=== PATIENT | male | born 1955 | race Caucasian/White ===

== ENCOUNTER 2016-11-09 07:02 | Day surgery (SDC) | payer BC ==
--- NOTE | 2016-10-15 12:28 | HP ---
Chief Complaint - Chief Complaint Date of Service: 10/15/16 Chief Complaint: need my colonoscopy History of Present Illness: 61 year old male with no family history of colon cancer who presents for a screening colonoscopy. No blood in stools, no changes in bowel habits, no abdominal pain. No weight loss or night sweats. Uses fiber supplements to make bowels regular. - Patient's Past Medical History Patient History - Medical: No pertinent hx, Other - allergies Patient History - Cardiac/Respiratory: No pertinent hx Patient History - Surgical Procedures: Colonoscopy, Orthopedic - knee scopes for meniscus tears Patient History - Other: None - Family History Family History:: no untoward family reactions to anesthesia, no familial bleeding tendencies, no family history of clotting disorders - Family History Mother Family History - Medical: No pertinent hx Father Family History - Medical: No pertinent hx - Social History Living Situations: spouse Abuse History: No History of abuse Psych History: No pertinent hx Does anyone smoke in the home?: No Smoking Status: Never smoker Alcohol Use: occasionally Drug Use: none - Immunizations Immunizations Up to Date: Yes Hx Pneumococcal Vaccination: Yes History of Influenza Vaccine: Yes Review Of Systems (GEN) - Review of Systems Generalized/Overall Review: Absent: Weakness, Malaise, Fatigue, Weight loss, Weight gain EENTM: Absent: Blurred Vision, Tearing, Double Vision Respiratory: Absent: Shortness of Breath, Stridor, Wheezing Cardiac: Absent: Chest Pain, Edema, Palpitations Abdominal: Absent: Nausea, Abdominal Pain, Constipation, Diarrhea, Bright blood from rectum Genitourinary: Present: Nocturia. Absent: Burning, Itching, Urgency, Frequency Musculoskeletal: Present: Joint Pain, Joint Swelling, Muscle Pain. Absent: Back Pain Neurological: Absent: Headache, Anxiety, Depressed, Emotional Problems, Numbness Skin: Absent: Dryness, Lesions, Lumps Endocrine: Absent: Intolerance to Cold Allergies/Adverse Reactions: Allergies Allergy/AdvReac Type Severity Reaction Status Date / Time sulfamethoxazole AdvReac Mild RASH Verified 07/13/14 14:36 [From Bactrim] trimethoprim [From Bactrim] AdvReac Mild RASH Verified 07/13/14 14:36 Home Medications: HOME MEDICATIONS Aspirin [Aspirin Enteric Coated] 81 mg PO DAILY 07/13/14 [Last Taken Unknown] Cyanocobalamin (Vitamin B-12) [Vitamin B-12] 2,000 mcg PO DAILY 07/13/14 [Last Taken Unknown] Fexofenadine HCl [Dee Allergy] 180 mg PO DAILY 07/13/14 [Last Taken Unknown] Fluticasone Propionate [Flonase] 2 spray NS DAILY 07/13/14 [Last Taken Unknown] Testosterone [Androgel] 91 mg TD DAILY 07/13/14 [Last Taken Unknown] oxyCODONE HCL/ACETAMINOPHEN [Percocet 5 MG/325 MG] 1 tab PO Q4H PRN #60 tablet 07/16/14 [Last Taken Unknown] Exam - Exam Vital Signs: Vital Signs - Last Taken Temp 36.7 C 10/15/16 Pulse 70 Resp BP 128/70 10/15/16 Pulse Ox Ht 5'10 Wt 160#s Constitutional: Present: Alert, Oriented x3, Cooperative, Well developed, Well nourished, No distress ENT Exam: Present: normal ENT inspection, hearing grossly normal Eye Exam: bilateral eye: normal inspection Neck: Present: non-tender, full range of motion, supple Respiratory: Present: chest non-tender, lungs clear, normal breath sounds, no respiratory distress, no accessory muscle use Cardiovascular/Chest: Present: normal peripheral pulses, regular rate, rhythm, no edema, no gallop, no JVD, no murmur Abdomen: Present: Normal bowel sounds, soft, nontender, nondistended, no rebound tenderness, no hepatospenomegaly /Rectal: Present: Exam deferred Extremity: Present: normal range of motion, non-tender, normal inspection Skin Exam: Present: normal color, warm/dry, no cyanosis Neurologic: Present: no motor/sensory deficits, alert, normal mood/affect, oriented x 3 Appearance: Present: appropriate appearance, appropriate insight, neat, no memory impairment, denies illness Eye contact: Present: cooperative, good eye contact, normal speech Thoughts: Present: normal thought pattern, no apparent hallucination, normal mood /affect Assessment/Plan - Narrative Narrative: I discussed the procedure and the prep (SUPREP) and he understands and agree. Booklet information discussed and given to patient. RBIC discussed. - Assessment/Plan (1) Screen for colon cancer Problem: Acute (2) Seasonal allergies Problem: Chronic
[~2016-11-09 07:02] MED LIST: RINGERS SOLUTION,LACTATED 1,000 ML IV PRN
--- OUTSIDE RECORDS SUMMARY | 2016-11-09 07:07 | XMS REPORT | Continuity of Care Document ---
:1955 Author Organization [facility] ([facility]) Address [place] [address] Phone [phone] Care Team Providers Name Role Phone Provider, No-Primary Care Primary Care Provider Unavailable Source Comments This disclosure is being made pursuant to the Care Everywhere program, applicable federal and state laws, and may not contain all informaitonavailable regarding this patient.[facility] ([facility]) Active Allergies and Adverse Reactions Not on File Current Medications Not on file Active Problems Not on file Social History Tobacco Use Types Packs/Day Years Used Date Never Assessed Plan of Care Health Maintenance Due Date Last Done Comments HCV Screening 1955 Hepatitis B Vaccine (1 of 3 - Primary Series) 1955 Tdap Vaccine 08/20/1966 Lipid Disorder Screening 08/20/1973 MMR Vaccine 08/20/1973 Td Vaccine 08/20/1973 Colonoscopy 08/20/2005 Prostate Cancer Screening 08/20/2005 Zoster Vaccine 2015 Influenza Vaccine: Seasonal (#1) 01/02/2016 Results from Last 3 Months Not on file
[2016-11-09] MEDS ORDERED: RINGERS SOLUTION,LACTATED 1,000 ML IV ONE ×2 (07:36→07:50)
[2016-11-09] MEDS ORDERED: RINGERS SOLUTION,LACTATED 1,000 ML IV PRN (08:21)
--- NOTE | 2016-11-09 08:23 | OR ---
Operative Report - Dictated Report Narrative: DATE OF PROCEDURE: 11/09/2016 PREOPERATIVE DIAGNOSIS: #1 Screening colonoscopy POSTOPERATIVE DIAGNOSIS: #1 Screening colonoscopy OPERATION: Colonoscopy SURGEON: Louis Camacho M.D. [facility] ANESTHESIA : Jelly Sims CRNA sedation INDICATIONS: This is 61 year old male who presents for a screening colonoscopy. I have discussed the risks, benefits, indications, and contraindications for colonoscopy with the possibility of biopsy and/or polypectomy. He understands, agrees, and wishes to proceed. He has undergone a SUPREP and has tolerated it well. PROCEDURE: The patient was brought to the operating theater and placed into the left lateral decubitus position. The patient underwent sedation per anesthesia , and a digital rectal exam was performed. This was noted to be unremarkable. The patient was noted to have no internal or external hemorrhoids. The Olympus video colonoscope was introduced and advanced into the rectum. The rectum was normal in appearance. The scope was then advanced through the sigmoid, where no diverticular disease was noted. The scope was then advanced to the cecum using standard reduction techniques. The appendiceal orifice was noted. The ileocecal valve was noted. The prep appeared to be excellent with a [place] prep score of 9. The scope was withdrawn slowly as the ascending, transverse, descending, and sigmoid colon were examined in a circumferential fashion. The scope was brought back into the rectum where it was retroflexed in the lower rectum was examined. The air was decompressed, and the scope was then removed. Withdrawal time was 8 minutes. POSTOPERATIVE CONDITION: The patient was awakened and taken to the ambulatory surgery center in good condition. No complications were encountered. FINDINGS: Negative Specimens: None EBL: 0 The findings were discussed with the patient and his . I recommend a follow -up colonoscopy in 10 years for screening purposes.
[2016-11-09 09:21] VITALS: BP 136/81
== END 2016-11-09 07:03 | disposition home or self-care (01) ==
LOC: AMB 07:02
PROVIDERS: ATTEND Surgery
PROC: 0DJD8ZZ Inspection of Lower Intestinal Tract, Via Natural or Artificial Opening Endoscopic (ICD-10-PCS; principal; 2016-11-09 07:45)
DX: Z12.11 Encounter for screening for malignant neoplasm of colon (principal); Z68.23 Body mass index [BMI] 23.0-23.9, adult